=== PATIENT | female | born 1940 | race Caucasian/White ===

== ENCOUNTER 2018-01-11 21:57 | Outpatient (REF) | payer MEDICARE, MEDICAID, SELFPAY ==
[2018-01-11 22:51] LABS: BUN 14 mg/dL (7-18); CREATININE 0.97 mg/dL (0.55-1.02); Calcium 9.1 mg/dL (8.5-10.1); Chloride 102 mmol/L (98-107); Cholesterol 218 mg/dL (50-200); Estimated GFR 55.98 (mL/min/1.73m2); Glucose 106 mg/dL (70-100); HDL Cholesterol 48 mg/dL (40-60); LDL CHOLESTEROL 118 mg/dL (<100); Potassium 4.1 mmol/L (3.5-5.1); Sodium 142 mmol/L (136-145); Triglyceride 412 mg/dL (30-150)
[2018-01-11 22:52] LABS: VALPROIC ACID 46.8 ug/mL (50-100)
== END 2018-01-11 22:17 ==
LOC: LBN 21:57
PROVIDERS: PCP Family Medicine; Visit Provider Family Medicine
DX: G10 Huntington's disease (principal); E78.5 Hyperlipidemia, unspecified; M62.81 Muscle weakness (generalized)
CPT/HCPCS: 80048; 80061; 83721; 80164

== ENCOUNTER 2018-01-31 21:18 | Outpatient (REF) | payer MEDICARE, MEDICAID, SELFPAY ==
[2018-01-31 22:03] LABS: HCT 39.7 % (36.0-46.0); HGB 12.9 g/dL (12.0-15.5); Mean Corp. HGB Concentration 32.5 g/dL (32.0-36.0); Mean Corpuscular Hemoglobin 31.6 pg (27.0-33.0); Mean Corpuscular Volume 97.3 fL (80-95); Mean Platelet Volume 11.3 fL (8.0-11.0); Platelet Count 172 x1000/uL (130-400); RBC 4.08 m/cumm (4.00-5.20); RBC Distribution Width 12.1 % (11.7-14.6); White Blood Cell Count 6.85 k/cumm (4.4-10.8)
== END 2018-01-31 21:38 ==
LOC: NCHCN 21:18
PROVIDERS: PCP Family Medicine; Visit Provider Family Medicine
DX: D64.9 Anemia, unspecified (principal)
CPT/HCPCS: 85027

== ENCOUNTER 2018-07-11 23:03 | Outpatient (REF) | payer MEDICARE, MEDICAID, SELFPAY ==
[2018-07-11 23:57] LABS: VALPROIC ACID 27.1 ug/mL (50-100)
[2018-07-12 00:30] LABS: HCT 38.6 % (36.0-46.0); HGB 12.5 g/dL (12.0-15.5); Mean Corpuscular Volume 96.3 fL (80-95); RBC 4.01 m/cumm (4.00-5.20); White Blood Cell Count 4.14 k/cumm (4.4-10.8)
[2018-07-12 00:31] LABS: Mean Corp. HGB Concentration 32.4 g/dL (32.0-36.0); Mean Corpuscular Hemoglobin 31.2 pg (27.0-33.0); Mean Platelet Volume 12.3 fL (8.0-11.0); Platelet Count 118 x1000/uL (130-400); RBC Distribution Width 12.5 % (11.7-14.6)
[2018-07-12 00:38] LABS: Cholesterol 130 mg/dL (50-200); HDL Cholesterol 40 mg/dL (40-60); LDL CHOLESTEROL 63 mg/dL (<100); Triglyceride 223 mg/dL (30-150)
[2018-07-12 00:40] LABS: Hemoglobin A1C 5.5 % (4.5-6.2)
== END 2018-07-11 23:23 ==
LOC: NCHCN 23:03
PROVIDERS: PCP Family Medicine; Visit Provider Family Medicine
DX: E78.5 Hyperlipidemia, unspecified (principal); G10 Huntington's disease; M62.81 Muscle weakness (generalized); Z51.81 Encounter for therapeutic drug level monitoring; Z79.899 Other long term (current) drug therapy
CPT/HCPCS: 80061; 83721; 85027; 80164; 83036

== ENCOUNTER 2018-09-28 22:48 | Outpatient (REF) | payer MEDICARE, MEDICAID, SELFPAY ==
[2018-09-28 21:48] LABS: ALT 20 U/L (12-78); AST 14 U/L (15-37); Albumin 3.5 g/dL (3.4-5.0); Alkaline Phosphatase 94 U/L (46-116); Bilirubin, Direct 0.06 mg/dL (0.00-0.20); Bilirubin, Total 0.2 mg/dL (0.2-1.0); Total Protein 7.4 g/dL (6.4-8.2)
== END 2018-09-28 23:08 ==
LOC: NCHCN 22:48
PROVIDERS: PCP Family Medicine; Visit Provider Family Medicine
DX: E78.5 Hyperlipidemia, unspecified (principal)
CPT/HCPCS: 80076

== ENCOUNTER 2018-12-11 21:23 | Outpatient (REF) | payer MEDICARE, MEDICAID, SELFPAY ==
[2018-12-11 21:22] LABS: Abs Immature Grans 0.06 k/cumm (0.0-0.09); Absolute Basophil Count 0.01 k/cumm (0.0-0.2); Absolute Eosinophil Count 0.09 k/cumm (0.0-0.7); Absolute Lymphocyte Count 2.88 k/cumm (1.2-3.4); Absolute Neutrophil Count 3.94 k/cumm (1.2-6.7); Basophils % 0.1; Eosinophils % 1.2; HCT 38.4 % (36.0-46.0); HGB 12.5 g/dL (12.0-15.5); Immature Grans % 0.8; Lymphocytes % 38.5; Mean Corp. HGB Concentration 32.6 g/dL (32.0-36.0); Mean Corpuscular Hemoglobin 30.6 pg (27.0-33.0); Mean Corpuscular Volume 93.9 fL (80-95); Mean Platelet Volume 11.4 fL (8.0-11.0); Monocytes % 6.7; Neutrophils % 52.7; Platelet Count 205 x1000/uL (130-400); RBC 4.09 m/cumm (4.00-5.20); RBC Distribution Width 12.6 % (11.7-14.6); White Blood Cell Count 7.48 k/cumm (4.4-10.8)
[2018-12-11 21:30] LABS: Anion Gap 9.5 mmol/L (3-11); BUN 21 mg/dL (7-18); CO2 30.5 mmol/L (21.0-32.0); CREATININE 0.84 mg/dL (0.55-1.02); Chloride 105 mmol/L (98-107); Glucose 98 mg/dL (70-100); Potassium 4.1 mmol/L (3.5-5.1); Sodium 145 mmol/L (136-145)
[2018-12-11 21:35] LABS: VALPROIC ACID 33.7 ug/mL (50-100)
== END 2018-12-11 21:43 ==
LOC: LBN 21:23
PROVIDERS: PCP Family Medicine; Visit Provider Family Medicine
DX: G10 Huntington's disease (principal); F33.8 Other recurrent depressive disorders; Z51.81 Encounter for therapeutic drug level monitoring; Z79.899 Other long term (current) drug therapy; E78.5 Hyperlipidemia, unspecified
CPT/HCPCS: 80048; 80164; 85025

== ENCOUNTER 2019-04-02 22:21 | Outpatient (REF) | payer MEDICARE, MEDICAID, SELFPAY ==
[2019-04-02 21:55] LABS: ALT 16 U/L (14-59); AST 15 U/L (15-37); Albumin 3.4 g/dL (3.4-5.0); Alkaline Phosphatase 88 U/L (46-116); Bilirubin, Direct 0.05 mg/dL (0.00-0.20); Bilirubin, Total 0.2 mg/dL (0.2-1.0); Total Protein 7.4 g/dL (6.4-8.2)
== END 2019-04-02 22:41 ==
LOC: LBN 22:21
PROVIDERS: PCP Family Medicine; Visit Provider Family Medicine
DX: E78.5 Hyperlipidemia, unspecified (principal)
CPT/HCPCS: 80076

== ENCOUNTER 2019-06-11 22:41 | Outpatient (REF) | payer MEDICARE, MEDICAID, SELFPAY ==
[2019-06-11 17:54] LABS: Anion Gap 11.9 mmol/L (3-11); BUN 21 mg/dL (7-18); CO2 27.1 mmol/L (21.0-32.0); CREATININE 1.01 mg/dL (0.55-1.02); Calcium 8.5 mg/dL (8.5-10.1); Calculated LDL 65 mg/dL (<100); Chloride 104 mmol/L (98-107); Cholesterol 173 mg/dL (<200); Estimated GFR 53.29 (mL/min/1.73m2); Glucose 110 mg/dL (74-106); HDL Cholesterol 37 mg/dL (40-60); Potassium 3.8 mmol/L (3.5-5.1); Sodium 143 mmol/L (136-145); Triglyceride 355 mg/dL (<150)
[2019-06-11 17:55] LABS: VALPROIC ACID 31.1 ug/mL (50-100)
[2019-06-11 18:31] LABS: HCT 38.2 % (36.0-46.0); HGB 12.6 g/dL (12.0-15.5); Mean Corpuscular Hemoglobin 31.2 pg (27.0-33.0); Mean Corpuscular Volume 94.6 fL (80-95); Mean Platelet Volume 11.9 fL (8.0-11.0); Platelet Count 212 x1000/uL (130-400); RBC 4.04 m/cumm (4.00-5.20); RBC Distribution Width 12.6 % (11.7-14.6)
[2019-06-11 18:39] LABS: Hemoglobin A1C 5.8 % (3.8-5.6)
== END 2019-06-11 23:01 ==
LOC: LBN 22:41
PROVIDERS: PCP Family Medicine; Visit Provider Family Medicine
DX: G10 Huntington's disease (principal); F33.8 Other recurrent depressive disorders; E78.5 Hyperlipidemia, unspecified; Z51.81 Encounter for therapeutic drug level monitoring; Z79.899 Other long term (current) drug therapy
CPT/HCPCS: 80048; 80061; 85027; 80164; 83036

== ENCOUNTER 2019-10-29 20:25 | Outpatient (REF) | payer MEDICARE, MEDICAID, SELFPAY ==
[2019-10-29 17:09] LABS: ALT 29 U/L (14-59); AST 20 U/L (15-37); Albumin 3.4 g/dL (3.4-5.0); Alkaline Phosphatase 88 U/L (46-116); Anion Gap 9.1 mmol/L (3-11); BUN 11 mg/dL (7-18); Bilirubin, Direct 0.05 mg/dL (0.00-0.20); Bilirubin, Total 0.2 mg/dL (0.2-1.0); CO2 28.9 mmol/L (21.0-32.0); CREATININE 0.98 mg/dL (0.55-1.02); Calcium 8.8 mg/dL (8.5-10.1); Chloride 106 mmol/L (98-107); Estimated GFR 55.03 (mL/min/1.73m2); Glucose 122 mg/dL (74-106); PHOSPHORUS 3.1 mg/dL (2.6-4.7); Potassium 3.9 mmol/L (3.5-5.1); Sodium 144 mmol/L (136-145); Total Protein 7.5 g/dL (6.4-8.2)
== END 2019-10-29 20:45 ==
LOC: LBN 20:25
PROVIDERS: PCP Family Medicine; Visit Provider Family Medicine
DX: E78.5 Hyperlipidemia, unspecified (principal); G10 Huntington's disease
CPT/HCPCS: 80069; 80076

== ENCOUNTER 2019-12-03 19:22 | Outpatient (REF) | payer MEDICARE, MEDICAID, SELFPAY ==
[2019-12-03 17:40] LABS: Anion Gap 8.9 mmol/L (3-11); BUN 16 mg/dL (7-18); CO2 29.1 mmol/L (21.0-32.0); CREATININE 1.08 mg/dL (0.55-1.02); Chloride 104 mmol/L (98-107); Estimated GFR 49.19 (mL/min/1.73m2); Glucose 88 mg/dL (74-106); Potassium 4.3 mmol/L (3.5-5.1); Sodium 142 mmol/L (136-145)
[2019-12-03 17:43] LABS: HGB 12.9 g/dL (11.2-15.7); MCH 30.8 pg (27.0-33.0); MCHC 32.3 % (32.0-36.0); MCV 95.5 fL (80-95); MPV 11.7 fL (8.0-11.0); Platelet Count 189 10^3/uL (130-400); RBC 4.19 10^6/uL (3.93-5.22); RDW-SD 41.9 fL; VALPROIC ACID 43.9 ug/mL (50-100); WBC 7.68 10^3/uL (4.4-10.8)
== END 2019-12-03 19:42 ==
LOC: LBN 19:22
PROVIDERS: PCP Family Medicine; Visit Provider Family Medicine
DX: G10 Huntington's disease (principal); F03.91 Unspecified dementia, unspecified severity, with behavioral disturbance; E78.5 Hyperlipidemia, unspecified; Z51.81 Encounter for therapeutic drug level monitoring
CPT/HCPCS: 80048; 85027; 80164

== ENCOUNTER 2020-01-28 17:41 | Outpatient (REF) | payer MEDICARE, MEDICAID, SELFPAY ==
[2020-01-28 17:50] LABS: ALT 27 U/L (14-59); AST 21 U/L (15-37); Albumin 3.3 g/dL (3.4-5.0); Alkaline Phosphatase 89 U/L (46-116); Bilirubin, Direct 0.05 mg/dL (0.00-0.20); Bilirubin, Total 0.2 mg/dL (0.2-1.0); Total Protein 7.3 g/dL (6.4-8.2)
== END 2020-01-28 18:01 ==
LOC: LBN 17:41
PROVIDERS: PCP Family Medicine; Visit Provider Family Medicine
DX: G10 Huntington's disease (principal); E78.5 Hyperlipidemia, unspecified
CPT/HCPCS: 80076

== ENCOUNTER 2020-03-31 19:47 | Outpatient (REF) | payer MEDICARE, MEDICAID, SELFPAY ==
[2020-03-31 18:20] LABS: Anion Gap 7.5 mmol/L (3-11); BUN 18 mg/dL (7-18); CO2 27.5 mmol/L (21.0-32.0); CREATININE 0.99 mg/dL (0.55-1.02); Calcium 8.2 mg/dL (8.5-10.1); Chloride 107 mmol/L (98-107); Estimated GFR 54.39 (mL/min/1.73m2); Glucose 87 mg/dL (74-106); PHOSPHORUS 3.3 mg/dL (2.6-4.7); Potassium 4.4 mmol/L (3.5-5.1); Sodium 142 mmol/L (136-145)
== END 2020-03-31 20:07 ==
LOC: NCHCN 19:47
PROVIDERS: PCP Family Medicine; Visit Provider Family Medicine
DX: R68.89 Other general symptoms and signs (principal); G10 Huntington's disease; F03.91 Unspecified dementia, unspecified severity, with behavioral disturbance; E78.5 Hyperlipidemia, unspecified
CPT/HCPCS: 80069

== ENCOUNTER 2020-05-14 17:02 | Outpatient (REF) | payer MEDICARE, MEDICAID, SELFPAY ==
[2020-05-14 16:57] LABS: HCT 37.2 % (36.0-46.0); HGB 12.3 g/dL (11.2-15.7); MCH 31.3 pg (27.0-33.0); MCHC 33.1 % (32.0-36.0); MCV 94.7 fL (80-95); MPV 11.7 fL (8.0-11.0); Platelet Count 143 10^3/uL (130-400); RBC 3.93 10^6/uL (3.93-5.22); RDW 12.1 % (11.7-14.6); RDW-SD 42.8 fL; WBC 7.62 10^3/uL (4.4-10.8)
[2020-05-14 17:08] LABS: Anion Gap 5.7 mmol/L (3-11); BUN 17 mg/dL (7-18); CO2 29.3 mmol/L (21.0-32.0); CREATININE 0.8 mg/dL (0.55-1.02); Calcium 8.6 mg/dL (8.5-10.1); Calculated LDL 61 mg/dL (<100); Chloride 109 mmol/L (98-107); Cholesterol 155 mg/dL (<200); Glucose 85 mg/dL (74-106); HDL Cholesterol 40 mg/dL (40-60); Potassium 4.3 mmol/L (3.5-5.1); Sodium 144 mmol/L (136-145); Triglyceride 271 mg/dL (<150)
[2020-05-14 17:43] LABS: Hemoglobin A1C 5.5 % (<5.7)
== END 2020-05-14 17:03 | disposition home or self-care (01) ==
LOC: NCHCN 17:02
PROVIDERS: PCP Family Medicine; Visit Provider Family Medicine
DX: R73.09 Other abnormal glucose (principal); R27.8 Other lack of coordination; G10 Huntington's disease; F33.8 Other recurrent depressive disorders; R26.81 Unsteadiness on feet; Z51.81 Encounter for therapeutic drug level monitoring; E78.5 Hyperlipidemia, unspecified
CPT/HCPCS: 80048; 80061; 85027; 80164; 83036

== ENCOUNTER 2020-10-15 19:29 | Outpatient (REF) | payer MEDICARE, MEDICAID, SELFPAY ==
[2020-10-15 20:36] LABS: ALT 18 U/L (14-59); AST 14 U/L (15-37); Albumin 3.1 g/dL (3.4-5.0); Alkaline Phosphatase 93 U/L (46-116); Anion Gap 5.6 mmol/L (3-11); BUN 18 mg/dL (7-18); Bilirubin, Direct 0.1 mg/dL (0.0-0.2); Bilirubin, Total 0.2 mg/dL (0.2-1.0); CO2 31.4 mmol/L (21.0-32.0); CREATININE 0.8 mg/dL (0.55-1.02); Calcium 8.7 mg/dL (8.5-10.1); Chloride 107 mmol/L (98-107); Glucose 86 mg/dL (74-106); PHOSPHORUS 3.1 mg/dL (2.6-4.7); Potassium 4.4 mmol/L (3.5-5.1); Sodium 144 mmol/L (136-145)
== END 2020-10-15 19:30 | disposition home or self-care (01) ==
LOC: NCHCN 19:29
PROVIDERS: PCP Family Medicine; Visit Provider Family Medicine
DX: G10 Huntington's disease (principal)
CPT/HCPCS: 80069; 80076

== ENCOUNTER 2020-11-21 20:58 | Outpatient (REF) | payer MEDICARE, MEDICAID, SELFPAY ==
[2020-11-21 21:38] LABS: HCT 40.1 % (36.0-46.0); HGB 13.1 g/dL (11.2-15.7); MCHC 32.7 % (32.0-36.0); MCV 91.8 fL (80-95); MPV 12.1 fL (8.0-11.0); Platelet Count 169 10^3/uL (130-400); RBC 4.37 10^6/uL (3.93-5.22); RDW 14.1 % (11.7-14.6); RDW-SD 47.7 fL; WBC 8.82 10^3/uL (4.4-10.8)
== END 2020-11-21 20:59 | disposition home or self-care (01) ==
LOC: LBN 20:58
PROVIDERS: PCP Family Medicine; Visit Provider Family Medicine
DX: F03.90 Unspecified dementia, unspecified severity, without behavioral disturbance, psychotic disturbance, mood disturbance, and anxiety (principal)
CPT/HCPCS: 80048; 85027; 80164

== ENCOUNTER 2020-11-24 21:22 | Outpatient (REF) | payer MEDICARE, MEDICAID, SELFPAY ==
[2020-11-24 22:32] LABS: VALPROIC ACID 41.2 ug/mL
[2020-11-24 22:52] LABS: Anion Gap 9.4 mmol/L (3-11); BUN 17 mg/dL (7-18); CO2 27.6 mmol/L (21.0-32.0); CREATININE 0.9 mg/dL (0.55-1.02); Calcium 8.5 mg/dL (8.5-10.1); Chloride 106 mmol/L (98-107); Glucose 80 mg/dL (74-106); Potassium 4.2 mmol/L (3.5-5.1); Sodium 143 mmol/L (136-145)
== END 2020-11-24 21:23 | disposition home or self-care (01) ==
LOC: NCHCN 21:22
PROVIDERS: PCP Family Medicine; Visit Provider Family Medicine
DX: F03.90 Unspecified dementia, unspecified severity, without behavioral disturbance, psychotic disturbance, mood disturbance, and anxiety (principal)
CPT/HCPCS: 80048; 80164

== ENCOUNTER 2021-01-12 21:22 | Outpatient (REF) | payer MEDICARE, MEDICAID, SELFPAY ==
[2021-01-12 22:11] LABS: ALT 24 U/L (14-59); AST 14 U/L (15-37); Albumin 3.4 g/dL (3.4-5.0); Alkaline Phosphatase 80 U/L (46-116); Bilirubin, Direct 0.1 mg/dL (0.0-0.2); Bilirubin, Total 0.2 mg/dL (0.2-1.0); Total Protein 7.3 g/dL (6.4-8.2)
== END 2021-01-12 21:23 | disposition home or self-care (01) ==
LOC: LBN 21:22
PROVIDERS: PCP Family Medicine; Visit Provider Family Medicine
DX: F03.90 Unspecified dementia, unspecified severity, without behavioral disturbance, psychotic disturbance, mood disturbance, and anxiety (principal)
CPT/HCPCS: 80076

== ENCOUNTER 2021-05-06 20:46 | Outpatient (REF) | payer MEDICARE, MEDICAID, SELFPAY ==
[2021-05-06 22:27] LABS: HCT 37.7 % (36.0-46.0); HGB 12.2 g/dL (11.2-15.7); MCH 31.3 pg (27.0-33.0); MCHC 32.4 % (32.0-36.0); MCV 96.7 fL (80-95); MPV 11.5 fL (8.0-11.0); Platelet Count 184 10^3/uL (130-400); RDW 12.8 % (11.7-14.6); RDW-SD 45.2 fL; WBC 7.13 10^3/uL (4.4-10.8)
[2021-05-06 22:33] LABS: ALT 24 U/L (14-59); AST 13 U/L (15-37); Albumin 3.1 g/dL (3.4-5.0); Alkaline Phosphatase 85 U/L (46-116); Anion Gap 8.8 mmol/L (3-11); BUN 20 mg/dL (7-18); Bilirubin, Total 0.2 mg/dL (0.2-1.0); CO2 29.2 mmol/L (21.0-32.0); Calcium 8.5 mg/dL (8.5-10.1); Chloride 106 mmol/L (98-107); Estimated GFR 53.62 (mL/min/1.73m2); Glucose 98 mg/dL (74-106); Potassium 3.7 mmol/L (3.5-5.1); Sodium 144 mmol/L (136-145); Total Protein 7.3 g/dL (6.4-8.2); VALPROIC ACID 61.7 ug/mL
== END 2021-05-06 20:47 | disposition home or self-care (01) ==
LOC: LBN 20:46
PROVIDERS: PCP Family Medicine; Visit Provider Family Medicine
DX: E78.5 Hyperlipidemia, unspecified (principal); F03.91 Unspecified dementia, unspecified severity, with behavioral disturbance; G10 Huntington's disease
CPT/HCPCS: 80053; 85027; 80164

== ENCOUNTER 2021-09-03 18:24 | Outpatient (REF) | payer MEDICARE, MEDICAID, SELFPAY ==
[2021-09-03 16:12] LABS: HCT 34.4 % (36.0-46.0); HGB 11.3 g/dL (11.2-15.7); MCH 31.7 pg (27.0-33.0); MCHC 32.8 % (32.0-36.0); MCV 97 fL (80-95); MPV 11.9 fL (8.0-11.0); Platelet Count 171 10^3/uL (130-400); RBC 3.56 10^6/uL (3.93-5.22); RDW 14.3 % (11.7-14.6); RDW-SD 51.5 fL; WBC 8.99 10^3/uL (4.4-10.8)
[2021-09-03 17:31] LABS: Hemoglobin A1C 5.6 % (<5.7)
[2021-09-03 17:35] LABS: VALPROIC ACID 55.1 ug/mL
[2021-09-03 17:39] LABS: ALT 17 U/L (14-59); AST 23 U/L (15-37); Alkaline Phosphatase 76 U/L (46-116); Anion Gap 7.2 mmol/L (3-11); BUN 27 mg/dL (7-18); Bilirubin, Total 0.1 mg/dL (0.2-1.0); CO2 27.8 mmol/L (21.0-32.0); CREATININE 0.8 mg/dL (0.55-1.02); Calcium 8.1 mg/dL (8.5-10.1); Calculated LDL 62 mg/dL (<100); Chloride 107 mmol/L (98-107); Cholesterol 148 mg/dL (<200); Glucose 86 mg/dL (74-106); HDL Cholesterol 41 mg/dL (40-60); Potassium 4.5 mmol/L (3.5-5.1); Sodium 142 mmol/L (136-145); Total Protein 6.9 g/dL (6.4-8.2); Triglyceride 225 mg/dL (<150)
== END 2021-09-03 18:25 | disposition home or self-care (01) ==
LOC: LBN 18:24
PROVIDERS: PCP Family Medicine; Visit Provider Family Medicine
DX: E78.5 Hyperlipidemia, unspecified (principal); G10 Huntington's disease; R79.89 Other specified abnormal findings of blood chemistry; Z79.899 Other long term (current) drug therapy; Z51.81 Encounter for therapeutic drug level monitoring
CPT/HCPCS: 80053; 80061; 85027; 80164; 83036

== ENCOUNTER 2021-11-04 15:38 | Outpatient (REF) | payer MEDICARE, MEDICAID, SELFPAY ==
[2021-11-04 16:39] LABS: HCT 36.8 % (36.0-46.0); HGB 12.2 g/dL (11.2-15.7); MCHC 33.2 % (32.0-36.0); MCV 97 fL (80-95); MPV 11.3 fL (8.0-11.0); Platelet Count 205 10^3/uL (130-400); RBC 3.81 10^6/uL (3.93-5.22); RDW 13.2 % (11.7-14.6); RDW-SD 46.7 fL; WBC 5.33 10^3/uL (4.4-10.8)
[2021-11-04 18:42] LABS: ALT 14 U/L (14-59); AST 13 U/L (15-37); Alkaline Phosphatase 81 U/L (46-116); Anion Gap 7.5 mmol/L (3-11); BUN 23 mg/dL (7-18); Bilirubin, Total 0.2 mg/dL (0.2-1.0); CO2 30.5 mmol/L (21.0-32.0); CREATININE 0.9 mg/dL (0.55-1.02); Calcium 8.7 mg/dL (8.5-10.1); Chloride 106 mmol/L (98-107); Glucose 88 mg/dL (74-106); Potassium 4.2 mmol/L (3.5-5.1); Sodium 144 mmol/L (136-145); Total Protein 7.7 g/dL (6.4-8.2)
[2021-11-04 18:58] LABS: VALPROIC ACID 54.6 ug/mL
== END 2021-11-04 15:39 | disposition home or self-care (01) ==
LOC: NCHCN 15:38
PROVIDERS: PCP Family Medicine; Visit Provider Family Medicine
DX: G10 Huntington's disease (principal)
CPT/HCPCS: 80053; 85027; 80164

== ENCOUNTER 2022-02-23 09:04 | Outpatient (REF) | payer MEDICARE, MEDICAID, SELFPAY ==
--- OUTSIDE RECORDS SUMMARY | 2022-02-23 09:10 | XMS_ITS | CCD ---
:1940 Author Care Team Providers Name Role Phone ABDIRAHMAN LUIS Attending Physician Unavailable THAIS MARCELO Er Physician 1 Unavailable ROBERTH Alegre Registered Nurse Unavailable Vital Signs Vital Sign Value Unit Date/Time Recent/Initial? BP Systolic 132 mmHg 06/10/2021 12:43 Initial VS BP Diastolic 81 mmHg 06/10/2021 12:43 Initial VS Respiratory Rate 24 bpm 06/10/2021 12:43 Initial VS Heart Rate 95 bpm 06/10/2021 12:43 Initial VS O2 % BldC Oximetry 94 % 06/10/2021 12:43 Initi al VS Body Temperature 35.6 degrees 06/10/2021 12:43 Initial VS BP Systolic 112 mmHg 06/10/2021 14:05 Most Recent VS BP Diastolic 65 mmHg 06/10/2021 14:05 Most Recent VS Respiratory Rate 22 bpm 06/10/2021 14:05 Most Re cent VS Heart Rate 89 bpm 06/10/2021 14:05 Most Recent VS O2 % BldC Oximetry 95 % 06/10/2021 14:05 Most Recent VS Allergies Allergy Code Allergy Type Reaction Status LEVOFLOXACIN 33708 Drug allergy UNKNOWN Active INFLUENZA VIRUS VACCINE 5806 Drug allergy UNKNOWN Acti ve Procedures Unknown or Not Available. History of Immunizations Immunization Code Date Pneumococcal conjugate PCV 13 133 03/06/2006 no vaccine administered 998 03/25/2010 Problems Unknown or Not Available. Results BNP (PRO-B NATRIURETIC PEPTIDE) - Colle t Date/Time: 06/10/2021 13:05 Test Name Code Test Result Test Units Test Ref Range NT-proBNP 20430-6 75.0 pg/mL L=0.0 H=450 COMPREHENSIVE METABOLIC PANEL (CMP) - Co llect Date/Time: 06/10/2021 13:05 Test Name Code Test Result Test Units Test Ref Range GLUCOSE 2345-7 90 mg/dL L=70 H=116 BUN 3094-0 20 mg/dL L=6 H=25 CREATININE 2160-0 0.86 mg/dL L=0.51 H=0.95 SODIUM SERUM 2951-2 140 mmol/L L=136 H=145 POTASSIUM SERUM 2823-3 4.0 mmol/L L=3.4 H=5.2 CHLORIDE SERUM 2075-0 103 mmol/L L=96 H=110 CARBON DIOXIDE (CO2) 2028-9 30 mmol/L L=22 H= 34 ANION GAP 34676-3 6.9 mmol/L CALCIUM SERUM 85641-1 8.5 mg/dL L=8.2 H=10.2 BILIRUBIN TOTAL 1975-2 0.2 mg/dL L=0.0 H=1.3 ALK. PHOS. 6768-6 83 U/L L=46 H=116 SGOT (AST) 1920-8 18 U/L L=15 H=37 SGPT (ALT) 1742-6 8 U/L L=12 H=78 TOTAL PROTEIN 2885-2 8.1 gm/dL L=6.0 H=8.0 ALBUMIN 1751-7 2.9 gm/dL L=3.4 H=5.0 AGE 80 years eGFR (non-Afr.Amer.) 79802-4 64 mL/min eGFR (Afr-[place]) 01410-6 77 mL/min TROPONIN HIGH SENSITIVITY* - Collect Jam e/Time: 06/10/2021 13:05 Test Name Code Test Result Test Units Test Ref Range TROPONIN HS 5.6 pg/mL L=0.0 H=60.4 Specimen seq. ADM. N/A CBC W/ DIFFERENTIAL* - Collect Date/Time : 06/10/2021 13:05 Test Name Code Test Result Test Units Test Ref Range WBC 6690-2 10.89 th/cmm L=5.00 H=10.00 NEUT % 62.6 % L=40.0 H=80.0 LYMPH % 32.0 % L=10.0 H=50.0 MONO % 10765-7 4.4 % L=2.0 H=12.0 EOS % 0.4 % L=0.0 H=8.0 BASO % 0.2 % L=0.0 H=3.0 IG % 2514-8 0.4 % L=0.0 H=1.1 NRBC % 20603-6 0.0 % L=0.0 H=0.0 NEUT abs count 751-8 6.8 th/cmm L=1.6 H=8.4 LYMPH abs count 731-0 3.5 th/cmm L=1.5 H=4.0 MONO abs count 742-7 0.5 th/cmm L=0.2 H=1.0 EOS abs count 711-2 0.0 th/cmm L=0.0 H=0.5 BASO abs count 704-7 0.0 th/cmm L=0.0 H=0.2 IG abs count 77597-7 0.0 th/cmm L=0.0 H=0.1 NRBC abs count 25848-3 0.0 mil/cmm L=0.0 H=0.0 RBC 789-8 3.84 mil/cmm L=3.90 H=5.40 HEMOGLOBIN 718-7 12.0 gm/dL L=12.0 H=16.0 HEMATOCRIT 4544-3 38 % L=37 H=47 MCV 787-2 98 fL L=82 H=92 MCH 785-6 31.3 pg L=27.0 H=31.0 MCHC 786-4 31.8 % L=32.0 H=36.0 RDW-SD 788-0 48.1 fL L=39.0 H=49.0 PLATELET COUNT 777-3 197 th/cmm L=150 H=450 Active Medications Unknown or Not Available. Medications Administered During Visit Unknown or Not Available. Encounters Encounter Diagnosis Diagnosis Code Start Date Pneumonia, unspecified organism J189 06/11/19 22 Social History Smoking Status Code Start Date End Date Never smoker [id number] Patient Decision Aids Unknown or Not Available. Discharge Instructions You were admitted to [facility] on 06/10/2021 11:54 with a principal diagnosis of Pneumonia, unspecified organism You had the following tests done: BNP ( PRO-B NATRIURETIC PEPTIDE) CBC W/ DIFFERENTIAL* COMPREHENSIVE METABOLIC PA JOEL (CMP) TROPONIN HIGH SENSITIVITY* You were discharged from [facility] on 06/10/2021 16:02 Should you have any questions prior to d ischarge, please contact a member of your healthcare team. If you have left the ho spital and have any questions, please contact your primary care physician. Chief Complaint and Reason For Visit Chief Complaint Date of Onset SHORT OF BREATH Function Status Unknown or Not Available. Plan of Care Unknown or Not Available. Referral/Transition of Care Unknown or Not Available.
--- OUTSIDE RECORDS SUMMARY | 2022-02-23 09:10 | XMS_ITS | CCD ---
:1940 Author Care Team Providers Name Role Phone KAELA ADLER Attending Physician Unavailable BELLA GOMEZ Er Physician 1 Unavailable ALEENA Alegre Registered Nurse Unavailable GIL Cook Registered Nurse Unavailable Vital Signs Vital Sign Value Unit Date/Time Recent/Initial? BMI (Body Mass Index) 39.48 kg/m^2 05/25/2021 13:50 In itial VS Weight Measured 140.4 lbs 05/25/2021 13:50 Initial VS Height 50 in 05/25/2021 13:50 Initial VS BSA (Body Surface Area) 1.5 m^2 05/25/2021 13:50 Initial VS BP Systolic 136 mmHg 05/25/2021 13:50 Initial VS BP Diastolic 88 mmHg 05/25/2021 13:50 Initial VS Respiratory Rate 22 bpm 05/25/2021 13:50 Initial VS Heart Rate 112 bpm 05/25/2021 13:50 Initial VS O2 % BldC Oximetry 100 % 05/25/2021 13:50 Initi al VS Body Temperature 36.4 degrees 05/25/2021 13:50 Initial VS Allergies Allergy Code Allergy Type Reaction Status LEVOFLOXACIN 81341 Drug allergy UNKNOWN Active INFLUENZA VIRUS VACCINE 5806 Drug allergy UNKNOWN Acti ve Procedures Unknown or Not Available. History of Immunizations Immunization Code Date Pneumococcal conjugate PCV 13 133 03/06/2006 no vaccine administered 998 03/25/2010 Problems Unknown or Not Available. Results BNP (PRO-B NATRIURETIC PEPTIDE) - [facility] t Date/Time: 05/25/2021 13:05 Test Name Code Test Result Test Units Test Ref Range NT-proBNP 53978-9 176.0 pg/mL L=0.0 H=450 COMPREHENSIVE METABOLIC PANEL (CMP) - Co llect Date/Time: 05/25/2021 13:05 Test Name Code Test Result Test Units Test Ref Range GLUCOSE 2345-7 117 mg/dL L=70 H=116 BUN 3094-0 22 mg/dL L=6 H=25 CREATININE 2160-0 0.78 mg/dL L=0.51 H=0.95 SODIUM SERUM 2951-2 141 mmol/L L=136 H=145 POTASSIUM SERUM 2823-3 3.9 mmol/L L=3.4 H=5.2 CHLORIDE SERUM 2075-0 102 mmol/L L=96 H=110 CARBON DIOXIDE (CO2) 2028-9 31 mmol/L L=22 H= 34 ANION GAP 47249-3 8.5 mmol/L CALCIUM SERUM 72249-6 8.8 mg/dL L=8.2 H=10.2 BILIRUBIN TOTAL 1975-2 0.3 mg/dL L=0.0 H=1.3 ALK. PHOS. 6768-6 78 U/L L=46 H=116 SGOT (AST) 1920-8 16 U/L L=15 H=37 TOTAL PROTEIN 2885-2 8.1 gm/dL L=6.0 H=8.0 ALBUMIN 1751-7 2.4 gm/dL L=3.4 H=5.0 AGE 80 years eGFR (non-Afr.Amer.) 43346-5 71 mL/min eGFR (Afr-Citizen [place]) 32601-4 86 mL/min LACTIC ACID - Collect Date/Time: 022 13:40 Test Name Code Test Result Test Units Test Ref Range LACTIC ACID 16248-0 2.3 mmol/L L=0.7 H=2.1 LIPASE* - Collect Date/Time: 05/25/2021 13:05 Test Name Code Test Result Test Units Test Ref Range LIPASE 79 U/L L=73 H=393 TROPONIN HIGH SENSITIVITY* - Collect Jam e/Time: 05/25/2021 13:05 Test Name Code Test Result Test Units Test Ref Range TROPONIN HS 5.4 pg/mL L=0.0 H=60.4 Specimen seq. ADM. N/A CBC W/ DIFFERENTIAL* - Collect Date/Time : 05/25/2021 13:05 Test Name Code Test Result Test Units Test Ref Range WBC 6690-2 12.19 th/cmm L=5.00 H=10.00 NEUT % 64.8 % L=40.0 H=80.0 LYMPH % 25.8 % L=10.0 H=50.0 MONO % 98981-0 6.3 % L=2.0 H=12.0 EOS % 0.3 % L=0.0 H=8.0 BASO % 0.3 % L=0.0 H=3.0 IG % 2514-8 2.5 % L=0.0 H=1.1 NRBC % 87902-8 0.0 % L=0.0 H=0.0 NEUT abs count 751-8 7.9 th/cmm L=1.6 H=8.4 LYMPH abs count 731-0 3.2 th/cmm L=1.5 H=4.0 MONO abs count 742-7 0.8 th/cmm L=0.2 H=1.0 EOS abs count 711-2 0.0 th/cmm L=0.0 H=0.5 BASO abs count 704-7 0.0 th/cmm L=0.0 H=0.2 IG abs count 45877-0 0.3 th/cmm L=0.0 H=0.1 NRBC abs count 72197-5 0.0 mil/cmm L=0.0 H=0.0 RBC 789-8 3.68 mil/cmm L=3.90 H=5.40 HEMOGLOBIN 718-7 11.7 gm/dL L=12.0 H=16.0 HEMATOCRIT 4544-3 36 % L=37 H=47 MCV 787-2 99 fL L=82 H=92 MCH 785-6 31.8 pg L=27.0 H=31.0 MCHC 786-4 32.1 % L=32.0 H=36.0 RDW-SD 788-0 48.6 fL L=39.0 H=49.0 PLATELET COUNT 777-3 269 th/cmm L=150 H=450 TAYLA COVID RHEONIX* - Collect Date/Sachin e: 05/25/2021 13:50 Test Name Code Test Result Test Units Test Ref Range Tier- 01259-4 SYMPTOMS N/A SARS COV2 RNA: 03938-1 POSITIVE N/A REFERENCE RAN GE: NEGAT Active Medications Medications Administered During Visit Medication Dose Units Frequency Route Date/Time of L ast Dose SODIUM CHLORIDE 0.9% 500ML 500 ML X1 05/25/2021 14:48 Encounters Encounter Diagnosis Diagnosis Code Start Date Pneumonia, unspecified organism J189 05/26/19 22 Social History Smoking Status Code Start Date End Date Never smoker [id number] Patient Decision Aids Unknown or Not Available. Discharge Instructions You were admitted to [facility] on 05/25/2021 13:02 with a principal diagnosis of Pneumonia, unspecified organism You had the following tests done: COPLE Y COVID RHEONIX* LACTIC ACID BNP (PRO-B NATRIURETIC PEPTIDE) CBC W/ DIFFERENTIAL * COMPREHENSIVE METABOLIC PANEL (CMP) LIPASE* TROPONIN HIGH SENSITIVITY* You were discharged from [facility] on 05/25/2021 16:43 Should you have any questions prior to d ischarge, please contact a member of your healthcare team. If you have left the ho spital and have any questions, please contact your primary care physician. Chief Complaint and Reason For Visit Chief Complaint Date of Onset SOB Function Status Unknown or Not Available. Plan of Care Unknown or Not Available. Referral/Transition of Care Unknown or Not Available.
[2022-02-23 10:03] LABS: VALPROIC ACID 47.9 ug/mL
== END 2022-02-23 09:05 | disposition home or self-care (01) ==
LOC: NCHCN 09:04
PROVIDERS: PCP Family Medicine; Visit Provider Family Medicine
DX: Z51.81 Encounter for therapeutic drug level monitoring (principal)
CPT/HCPCS: 80164

== ENCOUNTER 2022-03-08 10:24 | Outpatient (REF) | payer MEDICARE, MEDICAID, SELFPAY ==
[2022-03-08 10:49] LABS: HCT 40.8 % (36.0-46.0); HGB 13.1 g/dL (11.2-15.7); MCH 31.3 pg (27.0-33.0); MCHC 32.1 % (32.0-36.0); MCV 98 fL (80-95); MPV 11.6 fL (8.0-11.0); Platelet Count 156 10^3/uL (130-400); RBC 4.18 10^6/uL (3.93-5.22); RDW 13.4 % (11.7-14.6); RDW-SD 48.3 fL; WBC 6.87 10^3/uL (4.4-10.8)
[2022-03-08 11:01] LABS: Hemoglobin A1C 5.5 % (<5.7)
[2022-03-08 11:03] LABS: ALT 25 U/L (14-59); AST 21 U/L (15-37); Albumin 3.5 g/dL (3.4-5.0); Alkaline Phosphatase 99 U/L (46-116); BUN 26 mg/dL (7-18); Bilirubin, Total 0.2 mg/dL (0.2-1.0); CREATININE 0.9 mg/dL (0.55-1.02); Calcium 8.9 mg/dL (8.5-10.1); Chloride 105 mmol/L (98-107); Estimated GFR 65.03 (mL/min/1.73m2); Glucose 82 mg/dL (74-106); Potassium 4.5 mmol/L (3.5-5.1); Sodium 144 mmol/L (136-145); Total Protein 7.8 g/dL (6.4-8.2)
== END 2022-03-08 10:25 | disposition home or self-care (01) ==
LOC: LBN 10:24
PROVIDERS: PCP Family Medicine; Visit Provider Family Medicine
DX: G10 Huntington's disease (principal); E78.5 Hyperlipidemia, unspecified; R73.09 Other abnormal glucose
CPT/HCPCS: 80053; 85027; 83036

== ENCOUNTER 2022-06-30 15:20 | Outpatient (REF) | payer MEDICARE, MEDICAID, SELFPAY ==
[2022-06-30 18:06] LABS: TSH 3.74 uIU/mL (0.36-3.74)
== END 2022-06-30 15:21 | disposition home or self-care (01) ==
LOC: LBN 15:20
PROVIDERS: PCP Family Medicine; Visit Provider Family Medicine
DX: E03.9 Hypothyroidism, unspecified (principal)
CPT/HCPCS: 84443

== ENCOUNTER 2022-09-06 15:05 | Outpatient (REF) | payer MEDICARE, MEDICAID, SELFPAY ==
[2022-09-06 16:04] LABS: Abs Immature Grans 0.06 10^3/uL (0.0-0.06); Absolute Basophil Count 0.02 10^3/uL (0.0-0.2); Absolute Eosinophil Count 0.06 10^3/uL (0.0-0.7); Absolute Lymphocyte Count 3.81 10^3/uL (1.2-3.4); Absolute Monocyte Count 0.29 10^3/uL (0.1-0.8); Absolute Neutrophil Count 2.59 10^3/uL (1.2-6.7); Basophils % 0.3; Eosinophils % 0.9; HCT 39.5 % (36.0-46.0); HGB 12.8 g/dL (11.2-15.7); Immature Grans % 0.9; Lymphocytes % 55.8; MCH 31.3 pg (27.0-33.0); MCHC 32.4 % (32.0-36.0); MCV 97 fL (80-95); MPV 11.4 fL (8.0-11.0); Monocytes % 4.2; Neutrophils % 37.9; Platelet Count 193 10^3/uL (130-400); RBC 4.09 10^6/uL (3.93-5.22); RDW 13.8 % (11.7-14.6); RDW-SD 49.9 fL; WBC 6.83 10^3/uL (4.4-10.8)
[2022-09-06 16:26] LABS: Hemoglobin A1C 5.4 % (<5.7)
[2022-09-06 16:27] LABS: ALT 22 U/L (14-59); AST 19 U/L (15-37); Albumin 3.2 g/dL (3.4-5.0); Alkaline Phosphatase 82 U/L (46-116); Anion Gap 12.9 mmol/L (3-11); BUN 21 mg/dL (7-18); Bilirubin, Total 0.2 mg/dL (0.2-1.0); CO2 27.1 mmol/L (21.0-32.0); CREATININE 0.8 mg/dL (0.55-1.02); Calcium 8.6 mg/dL (8.5-10.1); Chloride 107 mmol/L (98-107); Estimated GFR 74.44 (mL/min/1.73m2); Glucose 80 mg/dL (74-106); Potassium 4.2 mmol/L (3.5-5.1); Sodium 147 mmol/L (136-145); TSH 3.23 uIU/mL (0.36-3.74); Total Protein 7.6 g/dL (6.4-8.2); VALPROIC ACID 60.8 ug/mL
== END 2022-09-06 15:06 | disposition home or self-care (01) ==
LOC: LBN 15:05
PROVIDERS: PCP Family Medicine; Visit Provider Family Medicine
DX: G10 Huntington's disease (principal); E78.5 Hyperlipidemia, unspecified; E03.9 Hypothyroidism, unspecified
CPT/HCPCS: 80053; 80164; 83036; 84443; 85025